=== PATIENT | female | born 1990 ===

== ENCOUNTER 2025-01-18 22:32 | Emergency (ER) | payer OTHER ==
[~2025-01-18] VITALS: Ht 152.4 cm; Wt 49.9 kg
== END 2025-01-18 23:57 | disposition left against medical advice (07) ==
LOC: ER 22:32
DX: R42 Dizziness and giddiness (principal); R40.4 Transient alteration of awareness; Z53.21 Procedure and treatment not carried out due to patient leaving prior to being seen by health care provider